=== PATIENT | male | born 1975 | race Caucasian/White ===

== ENCOUNTER 2017-01-05 08:54 | Emergency (ER) | payer OTHER ==
[~2017-01-05 08:54] MED LIST: TRICOR145 MG PO
[2017-01-05 09:33] LABS: BASOPHIL 0.9 % (0-2); EOSINOPHIL 5.2 % (0-5); HCT 44.6 % (42.0-52.0); HGB 15.8 g/dl (13.2-18.0); LYMPHOCYTE 27.2 % (15-48); MCH 29.2 pg (25.0-31.0); MCHC 35.4 g/dL (32.0-36.0); MCV 82.4 fL (78.0-100.0); MONOCYTE 10.2 % (0-12); MPV 9.3 fL (6.0-9.5); NEUTROPHIL 56.5 % (41-80); PLT 233 K/uL (150-400); RBC 5.41 M/uL (4.70-6.00); RDW 13.2 % (11.5-14.0); WBC 9.4 K/uL (4.0-10.5)
[2017-01-05 09:48] LABS: ALBUMIN 4.3 g/dL (3.5-5.0); BILIRUBIN - TOTAL 0.2 mg/dL (0.1-1.0); CREATININE 0.7 mg/dL (0.7-1.2); GLOBULIN (CALCULATION) 2.9 g/dL (2.2-4.2); POTASSIUM 4.4 mmol/L (3.5-5.1); TOTAL PROTEIN 7.2 g/dL (6.4-8.3)
[2017-01-05 09:50] LABS: PRO-BNP 31 pg/mL (0-125); TROPONIN T < 0.010 ng/mL
== END 2017-01-05 13:09 | disposition home or self-care (01) ==
LOC: FER 08:54
PROVIDERS: Emergency Medicine
DX: R07.89 Other chest pain (principal); E11.9 Type 2 diabetes mellitus without complications; F17.210 Nicotine dependence, cigarettes, uncomplicated; Z79.84 Long term (current) use of oral hypoglycemic drugs; Z87.19 Personal history of other diseases of the digestive system
CPT/HCPCS: 36415; 71020; 80053; 82550; 82553; 83880; 84484; 85025; 85379; 93005; J1885

== ENCOUNTER 2021-02-24 04:34 | Inpatient (IN) | payer OTHER ==
[~2021-02-24 04:34] MED LIST changes: +METFORMIN HCL500 MG PO; +NORCO 5-325 TA1 EACH PO
[2021-02-24 05:08] LABS: BASOPHIL 0.2 % (0-2); EOSINOPHIL 0 % (0-5); HCT 46.4 % (42.0-52.0); HGB 15.4 g/dl (13.2-18.0); LYMPHOCYTE 4.1 % (15-48); MCH 29.3 pg (25.0-31.0); MCHC 33.2 g/dL (32.0-36.0); MCV 88.2 fL (78.0-100.0); MONOCYTE 4.5 % (0-12); MPV 9.2 fL (6.0-9.5); NRBC 0; PLT 291 K/uL (150-400); RBC 5.26 M/uL (4.70-6.00); RDW 13.8 % (11.5-14.0)
[2021-02-24 05:10] LABS: NEUTROPHIL 90.8 % (41-80)
[2021-02-24 05:30] LABS: ALBUMIN 3.6 g/dL (3.4-5.0); BILIRUBIN - TOTAL 1.2 mg/dL (0.2-1.0); BUN/CREAT RATIO (CALC) 24.1 RATIO; CREATININE 0.58 mg/dL (0.67-1.17); GLOBULIN (CALCULATION) 3.9 g/dL; POTASSIUM 4.6 mmol/L (3.5-5.1); TOTAL PROTEIN 7.5 g/dL (6.4-8.2)
[2021-02-24 05:46] LABS: LACTIC ACID 4.2 mmol/L (0.4-1.9)
[2021-02-24 05:51] LABS: CORONAVIRUS 2019 SARS-COV-2 NEGATIVE (NEGATIVE); INFLUENZA A NAA NEGATIVE (NEGATIVE)
[2021-02-24 05:52] LABS: TOTAL CELL COUNT 100
[2021-02-24 06:03] LABS: BAND 2 % (0-10); NEUTROPHILS(M) 86 % (41-80)
[2021-02-24 06:04] LABS: LYMPHOCYTE(M) 7 % (15-48); MONOCYTE(M) 5 % (0-12); PLATELET ESTIMATE NORMAL; PLATELET MORPHOLOGY NORMAL
[2021-02-24 07:09] LABS: BILIRUBIN NEGATIVE (NEGATIVE); BLOOD NEGATIVE Ery/uL (NEGATIVE); CLARITY CLEAR (CLEAR); COLOR YELLOW (YELLOW); GLUCOSE (U) NORMAL (NORMAL); LEUKOCYTES NEGATIVE Leu/uL (NEGATIVE); NITRITE NEGATIVE (NEGATIVE); PROTEIN NEGATIVE (NEGATIVE); UROBILINOGEN 0.2 mg/dL (0.2-1.0); pH 5.5 (5.0-9.0)
--- NOTE | 2021-02-24 17:50 | NUR ---
1300 HOUSE CALLED FOR BED FOR COMFORT CARE PATIENT 1310 TOOK REPORT FROM ER ON PATIENT, AT THIS TIME PATIENT IS STILL INTUBATED AND SEDATED WITH FENTYNAL AND PROPROFOL. FAUSTO BEARDEN TOLD ER NURSE THAT MED-SURG PATIENT COULD NOT RECIEVE DRIPS AND THAT THEY COULD NOT BE EXTUBATED ON THE MED-SURG UNIT. [address] CROWELL WHO STATES THAT HE WILL BE OVER THE CARE OF THE PATIENT AND THAT HE WOULD BE COMING UP ON A FENTYNAL DRIP. WITH ORDERS FOR ATIVAN EVERY HOUR PRN. TOLD DR CROWELL THAT DRIPS WERE NOT ALLOWED ON MED SURG. HE REASSURED THAT IT COULD BE DONE BECAUSE IT HAD BEEN DONE PREVIOUSLY. ESCALATED TO CHILD CARE CENTRE DIRECTOR PARVEEN BEARDEN TO VERIFY THAT FENTYNAL DRIPS WERE ABLE TO BE USED ON THE MED SURG UNIT SHE SAID NO THEY COULD NOT AND SHE WAS GOING TO CLARIFY WITH DR CROWELL AND [facility]. 1320 CHILD CARE CENTRE DIRECTOR PARVEEN BEARDEN REPORTS BACK THAT THE PATIENT WILL NOT BE COMING TO MED SURG ON THE FENTYNAL DRIP THAT THE PHYSICIANS WERE DECIDEDING ON AN ALTERNATIVE 1325 ALTERNATIVE DECIDED WAS DILAUDID ON THE CONVEYOR FEEDER OFFBEARER PUMP AT 3MG CONTINUOUS WITH A 1MG CONVEYOR FEEDER OFFBEARER PUMP ALLOWED AND A 15MG LOCK OUT EVERY FOUR HOURS. PATIENT ARRIVED TO FLOOR. PT IS USING ACCESSORY MUSCLES AND ABDOMINAL BREATHING. DID BECOME SLIGHT RESTLESS AFTER TRANSFERRING FROM STRETCHER TO BED PT HAD NG TUBE IN PLACE - HOOKED TO LOW WALL SUCTION TO DETERMINE THE REMAINDER OF ANYTHING LEFT IN THE STOMACH 1420 NG TUBE BECAME CLEAR FROM NARE DOWN. SPOKE TO FAMILY ABOUT THE REMOVAL OF THE NG TUBE. 1425 CALLED MERVAT TO UPDATE ON THE NG TUBE CLEARING AND IF IT WAS ABLE TO BE DISCONTINUE. HE STATED YES AND THAT HE WOULD PLACE AN ORDER. 1430 ORDER PALCED TO REMOVE NG TUBE. WENT INTO ROOM GAVE EDUCATION TO FAMILY ON THE USE OF A NG TUBE AND THE COMFORTABLITY THAT WOULD COME WITH THE REMOVAL. THE FAMILY AGREED THAT THE TUBE SHOULD BE REMOVED. ASKED THE FAMILY IF THEY WANTED TO STAY OR LEAVE THE ROOM FOR THE REMOVAL. THE FAMILY DECIDED TO STAY ATIVAN 2MG WAS GIVEN AND NG TUBE WAS REMOVED WITHOUT COMPLICATIONS. 1530 HOURLY ROUND ON PATIENT AND FMAILY. PT HAS A RESPIRATION RATE OF 24 PT IS USING ABDOMINAL MUSCLES AND ACCESSORY MUSCLES AT THIS TIME.
--- NOTE | 2021-02-25 06:18 | NUR ---
THIS NURSE CALLED TO ROOM BY . PT COMFORT CARE. PT UPON ARRIVAL TO ROOM. THUYLÓPEZ SHANNON APRN NOTIFIED. TIME OF 525. CORONOR NOTIFIED AND AWAITING ARRIVAL. FAMILY REQUESTING PT TO HAVE BODY DONATED TO [facility]. INFORMATION ON CHART. THIS NURSE CONTACTED [facility], AWAITING CORONOR DECISION. NURSE AND NEED TO CALL MEDCURE BACK AFTER PATIENT RELEASED. NO LINES OR TUBES REMOVED. PT REMAINS IN BED AT THIS TIME. FAMILY REMAIN AT BEDSIDE.
== END 2021-02-25 07:04 | disposition expired | DRG 871 ==
LOC: FER 04:34 → FMS 11:09
PROVIDERS: Emergency Medicine Emergency Medical Services; ADMIT Allergy & Immunology Allergy
PROC: 0BH17EZ Insertion of Endotracheal Airway into Trachea, Via Natural or Artificial Opening (ICD-10-PCS; principal; 2021-02-24)
PROC: 5A1935Z Respiratory Ventilation, Less than 24 Consecutive Hours (ICD-10-PCS; 2021-02-24)
PROC: 0D9670Z Drainage of Stomach with Drainage Device, Via Natural or Artificial Opening (ICD-10-PCS; 2021-02-24)
DX: A41.9 Sepsis, unspecified organism (principal); K63.1 Perforation of intestine (nontraumatic); K65.1 Peritoneal abscess; K65.9 Peritonitis, unspecified; J80 Acute respiratory distress syndrome; C19 Malignant neoplasm of rectosigmoid junction; C78.7 Secondary malignant neoplasm of liver and intrahepatic bile duct; E87.2 Acidosis; R65.20 Severe sepsis without septic shock; Z20.822 Contact with and (suspected) exposure to COVID-19; Z51.5 Encounter for palliative care; Z66 Do not resuscitate; K43.5 Parastomal hernia without obstruction or gangrene; E11.9 Type 2 diabetes mellitus without complications; E78.5 Hyperlipidemia, unspecified; Z93.3 Colostomy status; F17.210 Nicotine dependence, cigarettes, uncomplicated; D50.9 Iron deficiency anemia, unspecified; G89.29 Other chronic pain; K59.00 Constipation, unspecified; D72.829 Elevated white blood cell count, unspecified
CPT/HCPCS: 31500; 36415; 36600; 71045; 80053; 81003; 82803; 83605; 83690; 84145; 84484; 87040; 87088; 93005; 96365; 96366; 96367; 96375; 96376; J0330; J1170; J1630; J2060; J2250; J2270; J2405; J2543; J2550; J2704; J3010; J7030; J7050; Q9967; U0002